=== PATIENT | male | born 1975 | race Caucasian/White ===

== ENCOUNTER 2022-11-20 21:33 | Emergency (ER) | payer BC, OTHER ==
[2022-11-20] MEDS ORDERED: HYDROmorphone 1 MG/ML Syringe IVPUSH STA (22:04)
[2022-11-20] MEDS ORDERED: Ondansetron 4 MG/2 ML SDV IVPUSH ONE (22:04)
[2022-11-20] MEDS ORDERED: Sodium Chloride 0.9% 1,000 ML IV SCH (22:15)
[2022-11-20] MEDS ORDERED: Iopamidol 612 MG/ML 100 ML Bottle IVPUSH ONE (23:32)
[2022-11-20 23:50] LABS: CORONAVIRUS COVID-19 NAA NEGATIVE (NEGATIVE)
== END 2022-11-21 01:24 | disposition home or self-care (01) ==
LOC: JD.ED 21:33
DX: R10.31 Right lower quadrant pain (principal); R10.9 Unspecified abdominal pain; Z79.899 Other long term (current) drug therapy; Z79.01 Long term (current) use of anticoagulants; Z86.73 Personal history of transient ischemic attack (TIA), and cerebral infarction without residual deficits; Z86.16 Personal history of COVID-19; Z72.0 Tobacco use; Z20.822 Contact with and (suspected) exposure to COVID-19
CPT/HCPCS: 0241U; 36415; 74177; 80053; 81001; 85007; 85027; 85610; 96361; 96374; 96375; 99284; J1170; J2405; J7030; Q9967